=== PATIENT | female | born 1990 | race Two or more races ===

== ENCOUNTER 2020-11-10 13:08 | Outpatient (REF) | payer MEDICAID, SELFPAY ==
[2020-11-10 13:59] LABS: COVID-19 Test Negative (Negative)
== END 2020-11-10 13:09 | disposition home or self-care (01) ==
LOC: HO.LAB 13:08
PROVIDERS: Visit Provider Internal Medicine
DX: Z20.822 Contact with and (suspected) exposure to COVID-19 (principal)
CPT/HCPCS: 87635; C9803

== ENCOUNTER 2022-03-16 14:49 | Outpatient (REF) | payer MEDICAID, SELFPAY ==
--- NOTE | ~2022-03-16 | XR_ITS ---
EXAMINATION: XR HAND, LEFT CLINICAL INFORMATION: Trauma, pain first metacarpal. COMPARISON: None TECHNIQUE: PA, lateral, and oblique views of the left hand. FINDINGS: Normal bony mineralization. No fracture or dislocation. No destructive process. No arthropathy. No erosive changes. XR/XR hand LT min 3V IMPRESSION: Normal left hand.
== END 2022-03-16 14:50 | disposition home or self-care (01) ==
LOC: HO.XRAY 14:49
PROVIDERS: Absent Provider Internal Medicine Geriatric Medicine; PCP Internal Medicine Geriatric Medicine; Visit Provider Registered Nurse
DX: M79.645 Pain in left finger(s) (principal)
CPT/HCPCS: 73130

== ENCOUNTER → 2022-05-24 14:42 | Outpatient (BNVA) | payer MEDICAID, SELFPAY | PROVIDERS: PCP Internal Medicine Geriatric Medicine; Visit Provider Physician Assistant | DX: S63.642A Sprain of metacarpophalangeal joint of left thumb, initial encounter (principal) | CPT/HCPCS: 99202 ==

== ENCOUNTER 2022-05-27 16:29 | Outpatient (REF) | payer MEDICAID, SELFPAY ==
--- NOTE | ~2022-05-27 | MR_ITS ---
EXAMINATION: MR HAND WITHOUT CONTRAST, LEFT CLINICAL INFORMATION: S63.642A - Sprain of metacarpophalangeal joint of left thumb, initial encounter. Fall on hands. Thumb injury, bent backwards. COMPARISON: Radiograph dated 03/16/2022. TECHNIQUE: Multiplanar MR imaging was obtained through the left hand centered at the thumb MCP joint without contrast material on a 1.5 Padmini magnet. FINDINGS: No fracture or malalignment at the thumb. Articular cortices appear well preserved. No marrow edema. First CMC, thumb MCP, and thumb IP joints are unremarkable. No effusions. Trace increased T2 signal is present around the metacarpal origins of the radial collateral and ulnar collateral ligaments of the thumb MCP joint, suggesting mild sprains. No tears are identified. Dorsal and palmar joint capsules are intact and normal in signal intensity. Pollux sesamoids are normal. Extensor and flexor tendons are intact without appreciable tears or tendinosis. No tenosynovitis. Intrinsic hand musculature is normal in signal intensity. MR/MR hand LT wo con IMPRESSION: Possible mild sprains of the radial and ulnar collateral ligaments of the thumb MCP joint. No appreciable tears. Otherwise, normal appearance of the thumb MCP joint.
== END 2022-05-27 16:30 | disposition home or self-care (01) ==
LOC: HO.MRI 16:29
PROVIDERS: Visit Provider Physician Assistant
DX: S63.642A Sprain of metacarpophalangeal joint of left thumb, initial encounter (principal)
CPT/HCPCS: 73218

== ENCOUNTER 2023-04-20 09:27 | Outpatient (REF) | payer MEDICAID, SELFPAY ==
[2023-04-20 11:22] LABS: MANUAL DIFF FLAG NO
[2023-04-20 11:51] LABS: Basophils Absolute Auto 0.1 X10*3/uL (0.0-0.2); Basophils Percent Auto 0.8 % (0-2); Eosinophils Absolute Auto 0.2 X10*3/uL (0.0-0.4); Eosinophils Percent Auto 2.4 % (0-4); Hematocrit 37.8 % (37.0-47.0); Hemoglobin 11.8 g/dl (12.0-16.0); Imm Gran Abs Auto 0.03 X10*3/uL (0.00-0.03); Imm Gran Pct Auto 0.3 % (0.0-0.4); Lymphocytes Absolute Auto 1.8 X10*3/uL (1.2-4.9); Lymphocytes Percent Auto 20.6 % (20-40); Mean Corpuscular HGB Conc 31.2 g/dl (31.0-35.0); Mean Corpuscular Hemoglobin 26.5 pg (27.0-33.0); Mean Corpuscular Volume 84.8 fL (80.0-98.0); Mean Platelet Volume 11.4 fL (9.4-12.3); Monocytes Absolute Auto 0.8 X10*3/uL (0.1-1.2); Monocytes Percent Auto 9.6 % (2-11); Neutrophils Absolute Auto 5.8 x10*3/uL (2.0-8.3); Neutrophils Percent Auto 66.3 % (45-73); Platelet Count 403 X10*3/uL (160-400); Red Blood Count 4.46 X10*6/uL (4.20-5.50); White Blood Count 8.8 X10*3/uL (4.8-10.8)
[2023-04-20 15:04] LABS: Alanine Aminotransferase 16 U/L (0-31); Albumin Level 4.1 g/dL (3.5-5.0); Alkaline Phosphatase 92 U/L (39-117); Anion Gap 12 (12-20); Aspartate Amino Transferase 15 U/L (5-31); Bilirubin Total 0.3 mg/dL (0.0-1.0); Blood Urea Nitrogen 10 mg/dL (9-16); Calcium 9.2 mg/dL (8.4-10.2); Carbon Dioxide 26 mmol/L (22-29); Chloride 106 mmol/L (96-108); Cholesterol 185 mg/dL; Estimated Glomerular Filt Rate > 60; Glucose Random 73 mg/dL (60-115); HDL Cholesterol 61 mg/dL; LDL Cholesterol Calculated 118 mg/dl; Potassium 4.2 mmol/L (3.3-5.1); Sodium 140 mmol/L (135-145); TSH reflex Free T4 6.85 uIU/mL (0.32-4.0); Triglycerides 33 mg/dL
[2023-04-20 16:55] LABS: Free T4 (Free Thyroxine) 0.87 ng/dL (0.71-1.85)
== END 2023-04-20 09:28 | disposition home or self-care (01) ==
LOC: HO.HHCL 09:27
PROVIDERS: Visit Provider Internal Medicine Geriatric Medicine
DX: Z00.00 Encounter for general adult medical examination without abnormal findings (principal); Z13.220 Encounter for screening for lipoid disorders; Z13.1 Encounter for screening for diabetes mellitus
CPT/HCPCS: 36415; 80053; 80061; 84439; 84443; 85025

== ENCOUNTER 2023-05-23 16:33 | Outpatient (REF) | payer MEDICAID, SELFPAY ==
[2023-05-23 18:45] LABS: TSH reflex Free T4 4.94 uIU/mL (0.32-4.0)
[2023-05-23 19:35] LABS: Free T4 (Free Thyroxine) 0.89 ng/dL (0.71-1.85)
== END 2023-05-23 16:34 | disposition home or self-care (01) ==
LOC: HO.HHCL 16:33
PROVIDERS: Visit Provider Internal Medicine Geriatric Medicine
DX: E03.8 Other specified hypothyroidism (principal)
CPT/HCPCS: 36415; 84439; 84443

== ENCOUNTER 2024-02-07 15:19 | Outpatient (REF) | payer MEDICAID, SELFPAY ==
[2024-02-07 17:04] LABS: Free T4 (Free Thyroxine) 0.76 ng/dL (0.71-1.85)
[2024-02-08 13:33] LABS: Thyroid Peroxidase Antibodies 108 IU/mL (<9)
== END 2024-02-07 15:20 | disposition home or self-care (01) ==
LOC: HO.HHCL 15:19
PROVIDERS: Visit Provider Internal Medicine Geriatric Medicine
DX: O09.511 Supervision of elderly primigravida, first trimester (principal); O16.1 Unspecified maternal hypertension, first trimester; O26.891 Other specified pregnancy related conditions, first trimester; E03.8 Other specified hypothyroidism; Z3A.12 12 weeks gestation of pregnancy
CPT/HCPCS: 36415; 84439; 84443; 86376